=== PATIENT | male | born 1970 | race Caucasian/White ===

== ENCOUNTER 2019-11-18 11:21 | Observation (INO) | payer OTHER, SELFPAY ==
[2019-11-18] VITALS (9 sets, daily range): BP systolic 126–159; BP diastolic 78–102; PULSE 62–85; RESP 10–22; TEMP 36.3–37.1; O2SAT 95–99; BMI 26.6
--- NOTE | 2019-11-18 11:26 | DI.RAD.S_ITS ---
PROCEDURE: XR HAND LT MIN 3V INDICATIONS: 5th finger amputation TECHNIQUE: 3 views of the hand(s) acquired. COMPARISON: None. FINDINGS: Bones: No dislocations. Carpal bones are normally aligned. No suspicious bony lesions. There has been amputation across the mid diaphysis of the fifth distal phalanx, without foreign body seen. Soft tissues: No suspicious soft tissue calcifications. IMPRESSION: Partial distal phalanx amputation fifth digit left hand, without foreign body. No injury to the fourth digit found. Dictated by: Danish Aguirre M.D. on 11/18/2019 at 11:56 Approved by: Danish Aguirre M.D. on 11/18/2019 at 11:57
--- NOTE | 2019-11-18 11:35 | ED.GENADULT ---
HPI - General Adult General Chief complaint: Trauma Stated complaint: left hand 5th digit cut today Time Seen by Provider: 11/18/19 11:26 Source: patient and family Mode of arrival: Ambulatory Limitations: language barrier History of Present Illness HPI narrative: Otherwise healthy 49-year-old male. Right-hand dominant. Here for evaluation of an injury to his left little finger. Patient speaks French/Mexican. Can understand some Welsh however the translation line was used. Patient was using a skill saw when he cut his little finger. He does not know when his last tetanus shot was. Covered with a bandage in came to the emergency department. Modified trauma was called secondary to the amputation of the little finger. Related Data Home Medications Medication Instructions Recorded Confirmed No Known Home Medications 11/18/19 11/18/19 Allergies Allergy/AdvReac Type Severity Reaction Status Date / Time No Known Drug Allergies Allergy Verified 11/18/19 11:31 Review of Systems Constitutional Constitutional: Denies headache(s) ENT Ears, Nose, Mouth, and Throat: Denies headache(s) Musculoskeletal Comments: A petition left little finger Integumentary/Breasts Comments: Cut to left little finger Neurologic Neurologic: Denies headache(s) Hematologic/Lymphatic Hematologic/Lymphatic: Denies easy bleeding and Denies easy bruising Patient History Medical History Healthy adult (Acute) Social History Smoking Status: Never smoker Smoking Status: Never smoker tobacco type: cigarettes alcohol intake frequency: 0-2 drinks per day Exam Initial Vital Signs Initial Vital Signs: Vital Signs Temperature 98.7 F 11/18/19 11:31 Pulse Rate 70 11/18/19 11:31 Respiratory Rate 22 11/18/19 11:31 Blood Pressure 158/102 H 11/18/19 11:31 Pulse Oximetry 97 11/18/19 11:31 Const General: cooperative and comfortable Cardio Pulses: radial pulses present on the left Skin Other: Amputation just distal to the PIP joint left little finger Extrem Other: Amputation just distal to the PIP joint left little finger Psych Appearance: grossly normal and well kempt Procedures Nerve Block Nerve Block 1: Time out performed: Yes Local Anesthetic: lidocaine 1% Amount of anesthesia used (mL): 4 Side: left Nerve Blocks: digital Procedure Successful: Yes Patient Tolerated Procedure: Well Complications: none Course Orders Ordered: ED Orders 11/18/19 11:26 XR hand LT min 3V Stat 11/18/19 12:46 Basic Metabolic Panel Stat Complete Blood Count AUTO DIFF Stat Discontinued Medications Diphtheria/Tetanus/Acell Pertussis (Adacel) 0.5 ml IM .ONCE ONE Stop: 11/18/19 11:29 Last Admin: 11/18/19 11:36 Dose: 0.5 ml Documented by: ILIA Hydromorphone HCl (Dilaudid) 1 mg IV NOW ONE Stop: 11/18/19 12:54 Last Admin: 11/18/19 13:00 Dose: 1 mg Documented by: ILIA Cefazolin Sodium/Dextrose (Ancef) 2 gm in 100 mls @ 200 mls/hr IV NOW ONE Stop: 11/18/19 13:07 Last Admin: 11/18/19 12:48 Dose: 200 mls/hr Documented by: ILIA Lidocaine HCl (Xylocaine 1% (Pf)) 4 ml INJ NOW ONE Stop: 11/18/19 11:27 Last Admin: 11/18/19 11:36 Dose: 2 ml Documented by: ILIA Vital Signs Vital signs: Vital Signs - 8 hr 11/18/19 11:31 11/18/19 12:46 Temperature 98.7 F Pulse Rate 70 70 Respiratory Rate 22 18 Blood Pressure [Right Arm] 158/102 H 143/85 H Pulse Oximetry 97 99 Medical Decision Making Lab Data Lab results reviewed: Yes I reviewed the patient's lab results. Result diagrams: 11/18/19 12:46 11/18/19 12:46 Labs: Lab Results 11/18/19 11/18/19 Range/Units 12:46 12:46 WBC 9.0 (4.5-11.0) X10^3/uL RBC 4.97 (4.5-5.9) X10^6/uL Hgb 14.7 (13.5-17.5) g/dL Hct 43.1 (41-53) % MCV 86.8 (80-100) fL MCH 29.6 (26-34) PG MCHC 34.1 (30-36) % RDW 12.8 (11.6-14.8) % Plt Count 207 (150-400) X10^3/uL Neut % (Auto) 75.3 H (50-75) % Lymph % (Auto) 17.2 L (25-40) % [place] % (Auto) 5.8 (3-14) % Eos % (Auto) 1.1 L (2-4) % Baso % (Auto) 0.6 (0-2) % Neut # (Auto) 6800 (7342-8233) /uL Lymph # (Auto) 1600 (9986-6385) /uL [place] # (Auto) 500 (0-900) /uL Eos # (Auto) 100 (0-450) /uL Baso # (Auto) 100 (0-100) /uL Sodium 137 (137-145) mmol/L Potassium 3.9 (3.4-5.1) mmol/L Chloride 102 (98-107) mmol/L Carbon Dioxide 28 (22-32) mmol/L BUN 19 (9-20) mg/dL Creatinine 0.88 (0.66-1.25) mg/dL Estimated GFR > 60.0 (>60) mL/min BUN/Creatinine Ratio 21.6 (6-22) Glucose 100 (70-100) mg/dL Calcium 9.4 (8.4-10.2) mg/dL Imaging Data Extremity x-ray #1: Radiologist's Impression: [place] [id number] XRay Report Signed Patient: Mike Garcia#: [id number] : 1970Acct:[id number] Age/Sex: 49 / MDate of Service: 11/18/19 Loc: ED Accession Number: [id number] Procedure: XR hand LT min 3V Ordering Provider: Misael Rabago D.O. PROCEDURE: XR HAND LT MIN 3V INDICATIONS: 5th finger amputation TECHNIQUE: 3 views of the hand(s) acquired. COMPARISON: None. FINDINGS: Bones: No dislocations. Carpal bones are normally aligned. No suspicious bony lesions. There has been amputation across the mid diaphysis of the fifth distal phalanx, without foreign body seen. Soft tissues: No suspicious soft tissue calcifications. IMPRESSION: Partial distal phalanx amputation fifth digit left hand, without foreign body. No injury to the fourth digit found. Dictated by: Danish Aguirre M.D. on 11/18/2019 at 11:56 Approved by: Danish Aguirre M.D. on 11/18/2019 at 11:57 [facility] Narrative Medical decision making narrative: Discussed the case with Dr. Mason with Orthopedics who evaluated the x-ray and stated that the patient needed to go to the operating room for a completion amputation. He was given antibiotics. His tetanus was updated. Explained all this through the translation line. He expressed understanding and agreement. Discharge Plan Departure Patient Disposition: Admitted as Observation Clinical Impression: Amputation of finger of left hand Qualifiers: Encounter type: initial encounter Qualified Code(s): S68.119A - Complete traumatic metacarpophalangeal amputation of unspecified finger, initial encounter Admit Date/Time: 11/18/19 13:23 Admit Provider: Jason Mason
[2019-11-18] MEDS: LIDOCAINE 1% (PF) 4 ML INJ (11:36)
[2019-11-18] MEDS: TET,DIPH,PERTUSS(ACELL),VAC/PF 0.5 ML SYRINGE IM (11:36)
[2019-11-18 12:48] LABS: Add Manual Diff / Slide Review NO; Basophils Absolute Auto 100 /uL (0-100); Basophils Percent Auto 0.6 % (0-2); Eosinophils Absolute Auto 100 /uL (0-450); Eosinophils Percent Auto 1.1 % (2-4); Hematocrit 43.1 % (41-53); Hemoglobin 14.7 g/dL (13.5-17.5); Lymphocytes Absolute Auto 1600 /uL (1100-4500); Lymphocytes Percent Auto 17.2 % (25-40); Mean Corpuscular HGB Conc 34.1 % (30-36); Mean Corpuscular Hemoglobin 29.6 PG (26-34); Mean Corpuscular Volume 86.8 fL (80-100); Monocytes Absolute Auto 500 /uL (0-900); Monocytes Percent Auto 5.8 % (3-14); Neutrophils Absolute Auto 6800 /uL (1500-7000); Neutrophils Percent Auto 75.3 % (50-75); Platelet Count 207 X10^3/uL (150-400); Red Blood Cell Count 4.97 X10^6/uL (4.5-5.9); Red Cell Distribution Width 12.8 % (11.6-14.8)
[2019-11-18] MEDS: CEFAZOLIN 2 GM/100 ML FROZ.PIGGY IV ×2 (12:48→14:43)
[2019-11-18] MEDS: HYDROMORPHONE 1 MG INJ IV (13:00)
[2019-11-18 13:04] LABS: BUN Creatinine Ratio 21.6 (6-22); Blood Urea Nitrogen 19 mg/dL (9-20); Calcium 9.4 mg/dL (8.4-10.2); Carbon Dioxide 28 mmol/L (22-32); Chloride 102 mmol/L (98-107); Estimated Glomerular Filt Rate > 60.0 mL/min (>60); Glucose 100 mg/dL (70-100); HEMOLYSIS < 15 (0-50); Potassium 3.9 mmol/L (3.4-5.1); Sodium 137 mmol/L (137-145)
--- NOTE | 2019-11-18 13:18 | P.CONS_ITS ---
History of Present Illness Consult details Date Patient Seen: 11/18/19 Time Patient Seen: 13:19 Chief complaint: left hand 5th digit cut today Reason for consult: Left little finger partial amputation Requesting provider: Misael Rabago Narrative: 49-year-old male with a left little finger partial amputation. He is right-hand dominant. He was using a skill saw and lost control and cut the little finger of his left hand. He came into the emergency room. He did not injure himself anywhere else. Pain is a little bit better now that he is in the ER not moving. No major bleeding. He has Welsh but speaks Togolese. History was obtained through the emergency room record and discussing with Dr Rabago as well as the [place] cycle specialist telephone line. Meds Home Medications and Allergies Home Medications Medication Instructions Recorded Confirmed Type No Known Home Medications 11/18/19 11/18/19 History Allergies Allergy/AdvReac Type Severity Reaction Status Date / Time No Known Drug Allergies Allergy Verified 11/18/19 11:31 Review of Systems Constitutional Constitutional: Denies chills and Denies fever(s) Respiratory Respiratory: Denies cough Exam Vital Signs (past 8 hours): - 11/18/19 11:31 11/18/19 12:46 Temperature 98.7 F Pulse Rate 70 70 Respiratory Rate 22 18 Blood Pressure [Right Arm] 158/102 H 143/85 H Pulse Oximetry 97 99 Oxygen Delivery Method Room Air Const Orientation: alert and oriented x3 Resp Auscultation: clear to auscultation bilaterally Cardio Rate: regular rate Rhythm: regular rhythm Extrem Other: Left hand partial amputation through the middle of the middle phalanx of the little finger. Mild bleeding on dressing but no active arterial pumping. Intact sensation to the level of the transverse cut. Jagged edges. Exposed bone. Objective Imaging Left hand x-ray: My impression: Partial amputation through the shaft of the middle phalanx of the little finger. Transverse cut. Labs Result Diagrams: 11/18/19 12:46 11/18/19 12:46 Labs: Laboratory Results - last 24 hr 11/18/19 11/18/19 12:46 12:46 WBC 9.0 RBC 4.97 Hgb 14.7 Hct 43.1 MCV 86.8 MCH 29.6 MCHC 34.1 RDW 12.8 Plt Count 207 Neut % (Auto) 75.3 H Lymph % (Auto) 17.[address] [place] % (Auto) 5.8 Eos % (Auto) 1.1 L Baso % (Auto) 0.6 Neut # (Auto) 6800 Lymph # (Auto) 1600 [place] # (Auto) 500 Eos # (Auto) 100 Baso # (Auto) 100 Sodium 137 Potassium 3.9 Chloride 102 Carbon Dioxide 28 BUN 19 Creatinine 0.88 Estimated GFR > 60.0 BUN/Creatinine Ratio 21.6 Glucose 100 Calcium 9.4 Assessment & Plan Assessment & Plan narrative: He has an open amputation of the left little finger. I feel this needs to be emergently debrided and shortened in order to mitigate his infection risk from the open wound. This will be a disarticulation at the PIP joint and then local skin coverage. Risks and benefits of surgery were discussed with the patient including but not limited to medical risk with heart attack, stroke, , ongoing infection, bleeding, nerve sensitivity, stiffness, loss of function, need for further surgery. All this was explained through the cycle specialist and all questions were answered. We will plan for emergent surgery today.
--- NOTE | 2019-11-18 13:23 | PM.PREOP ---
Pre-operative Note Interval Note History & Physical reviewed/Exam performed by Physician: Yes Changes to H&P: No
[2019-11-18] MEDS: LIDOCAINE 1% 30 ML INJ (14:40)
[2019-11-18] MEDS: BUPIVACAINE 0.5% (PF) VIAL 30 ML INJ (14:40)
--- NOTE | 2019-11-18 15:06 | PM.OP.1 ---
Operative Date/Time/Diagnoses Date of procedure: 11/18/19 Time of procedure: 15:06 Pre-op diagnosis: Partial amputation of left little finger through the middle phalanx with open fracture Post-op diagnosis: same Procedure & Clinicians Procedure: Revision and shortening of left little finger amputation Irrigation debridement of open fracture of the left little finger middle phalanx Same procedure as scheduled: Yes Indications: 49-year-old male with and the open fracture and partial finger amputation. Was felt that he would require debridement and shortening of the amputation to be able to close. Risks and benefits of surgery were discussed and appropriate consents were obtained. Click Yes if Unassisted: Yes Anesthesia Type: General Operative Notes Findings: None Closure Type: primary Specimen(s): none sent Estimated Blood Loss (mL): 2 Procedure in detail: Patient brought the operating room and a time-out was performed. Attention was turned towards the well-marked left hand. Preoperative antibiotics were given. Combination of Marcaine and lidocaine was used for a digital block over the left little finger after a sterile prep. We then did a formal prep and drape of the left arm. Wound was examined. This was fairly contaminated with small fragments of particulate matter. The wound was irrigated and the debris was removed from the soft tissue. The jagged edges of the skin were sharply cleared back. We cleared around the bone and rongeured the tip. We only had to go approximately 5 mm shorter and we could still have good soft tissue coverage so I did not take it any further than this. The edges of the bone were trimmed back to smooth surface. The wound was again irrigated. We used Vicryl and then nylon to reapproximate the 2 flaps. Sterile dressing was placed. He was given distal lumen of the splint. Complications: none Post-operative Condition: stable Disposition: PACU Plan for aftercare: Outpatient. Discharge home with antibiotics. Keep dressing intact. Follow up in 1 week for wound check.
[2019-11-18] MEDS: CELECOXIB 200 MG CAPSULE 400 MG PO (15:22)
[2019-11-18] MEDS: ACETAMINOPHEN 325 MG TABLET 975 MG PO (15:22)
[2019-11-18] MEDS: OXYCODONE IR 5 MG TABLET PO (15:23)
--- NOTE | 2019-11-18 15:59 | SUR.PHASEII ---
DC instructions reviewed with pt. RX reviewed x2. Urged pt to be sure to at least fill ABX as he is prone to infection after this type of trauma. Instructed pt to be sure to call tomorrow for a follow up appt for 1 week from today. Pt verbally said OK. Pt was escorted by [facility] to ED entrance in stable condition.
== END 2019-11-18 16:03 | disposition home or self-care (01) ==
LOC: ED 12:39 → AC 13:24
PROVIDERS: Admitting Provider Orthopaedic Surgery; Emergency Provider Emergency Medicine; Referring Provider Emergency Medicine; Visit Provider Orthopaedic Surgery
PROC: (CPT 26951; principal; 2019-11-18 14:15)
DX: S68.627A Partial traumatic transphalangeal amputation of left little finger, initial encounter (principal); W31.2XXA Contact with powered woodworking and forming machines, initial encounter
CPT/HCPCS: 26951; 36415; 64450; 73130; 80048; 85025; 90471; 96365; 96375; 99284; 99285; G0378; 90715; J0690; J1170; J2704